=== PATIENT | female | born 1985 | race Caucasian/White ===

== ENCOUNTER 2017-02-19 17:35 | Emergency (ER) | payer BC, OTHER ==
[~2017-02-19] VITALS: Ht 165.1 cm; Wt 69.4 kg
[~2017-02-19 17:35] MED LIST: LEVO-713 PO; NXM/40 PO; SUCR5SUS PO; SUMA100T16 PO; SYMIN160 INH
[2017-02-19 17:38] VITALS: Ht 165.1 cm; Wt 69.4 kg
[2017-02-19] MEDS ORDERED: PROCHLORPERAZINE 5 MG/ML 2 ML VIAL IV STA (17:51)
[2017-02-19] MEDS ORDERED: DiphenhydrAMINE HCL 50 MG/ML VIAL IV STA (17:51)
[2017-02-19] MEDS ORDERED: SODIUM CHLORIDE 0.9% 1000ML 1,000 ML IV STA (17:51)
[2017-02-19] MEDS ORDERED: ERGO1CAP41 PO (18:26)
[2017-02-19] MEDS ORDERED: ASPI-390 PO (18:27)
[2017-02-19 18:38] LABS: BASO % 0.2 %; BASO ABS # 0.01 K/uL (0-0.2); COMPLETE YES; EOS % 0.2 %; HEMATOCRIT 37.7 % (37-47); IG% 0.2 %; LYMPH % 21.7 %; LYMPH ABS # 1.23 K/uL (1.2-3.4); MEAN CELL VOLUME 92.4 fL (80-100); MEAN CORPUSCULAR HEMOGLOBIN 30.9 pg (25-34); MEAN CORPUSCULAR HGB CONC 33.4 g/dl (32-36); MEAN PLATELET VOLUME 9.5 fL (7.4-10.4); NEUT % 71.7 %; PLATELET COUNT 251 K/uL (130-400); RED BLOOD COUNT 4.08 M/uL (4.2-5.4); WHITE BLOOD COUNT 5.68 K/uL (4.8-10.8)
[2017-02-19 18:57] LABS: BUN/CREATININE RATIO 14.9 (10-20); CALCIUM 8.9 mg/dl (8.5-10.1); CREATININE 0.93 mg/dl (0.60-1.20); POTASSIUM 3.5 mmol/L (3.5-5.1)
[2017-02-19] MEDS ORDERED: KETOROLAC TROMETHAMINE 30 MG/ML VIAL IV STA (18:57)
[2017-02-19 19:00] LABS: INR 1.1 (0.9-1.1); PARTIAL THROMBOPLASTIN RATIO 1.2; PROTHROMBIN TIME (PATIENT) 11.3 SECONDS (9.0-12.0)
--- NOTE | 2017-02-19 19:26 | DIAGNOSTIC IMAGING REPORT ---
CT OF THE ABDOMEN AND PELVIS WITHOUT CONTRAST, STONE PROTOCOL CLINICAL HISTORY: Left-sided abdominal pain. Evaluate for stone. COMPARISON STUDY: CT of the abdomen February 19, 2014 and right upper quadrant ultrasound November 08, 2014. TECHNIQUE: Helical axial images of the abdomen and pelvis were obtained without IV or oral contrast according to renal stone protocol. FINDINGS: Visualized portions of the lower chest demonstrate a pectus excavatum deformity. No renal, ureteral or bladder calculi are present. There is no hydronephrosis or hydroureter. The gallbladder is surgically absent. There is no biliary ductal dilatation. Evaluation of the remainder of the abdomen and pelvis is suboptimal on this unenhanced exam. The liver, spleen, adrenal glands and pancreas are normal. There is no evidence for a bowel obstruction. The appendix is not identified but there is no right lower quadrant inflammation. The ovaries are not enlarged. No pneumatosis, free air or portal venous gas is present. No suspicious skeletal lesions are identified. IMPRESSION: 1. No urinary calculi or hydronephrosis. 2. No acute process within the abdomen or pelvis on unenhanced exam. Electronically signed by: Adam Metz M.D. 02/19/2017 7:25 PM Dictated Date/Time: 02/19/2017 7:17 PM
[2017-02-19 19:39] LABS: LYME DISEASE AB IGG NEG (NEG); LYME DISEASE AB IGM NEG (NEG)
[2017-02-19] MEDS ORDERED: DOXY100C2 PO (20:01)
[2017-02-19 20:13] LABS: URINE APPEARANCE CLEAR (CLEAR); URINE BILIRUBIN NEG (NEG); URINE COLOR DK YELLOW; URINE EPITHELIAL CELL AUTO >30 /lpf (0-5); URINE NITRITE NEG (NEG); URINE SPECIFIC GRAVITY 1.033 (1.000-1.030); UROBILINOGEN NEG (NEG)
[2017-02-19] MEDS ORDERED: DOXYCYCLINE HYCLATE 100 MG CAP PO ONE (20:15)
[2017-02-19 20:20] LABS: MANUAL MICROSCOPIC REQUIRED? NO; REVIEW REQ? NO
[2017-02-19 20:45] VITALS: BP 104/68; PULSE 65; TEMP 36.9; O2SAT 97
--- NOTE | 2017-02-19 20:56 | EMERGENCY ROOM VISIT NOTE ---
History Report prepared by Elo: Joe Woodard Under the Supervision of: Dr. Collin Gavin M.D. First contact with patient: 17:43 Chief Complaint: HEADACHE Stated Complaint: MIGRAINE,DEHYDRATION,TICK BITE(NOVEMBER), ABDPAIN History of Present Illness The patient is a 31 year old female who presents to the Emergency Room with complaints of a worsening, left-sided, throbbing, headache beginning the other day. The patient states that she has been sick since November. She reports that she has had constant nausea, increased migraines, but she has not vomited. The patient notes that her headaches are always on the left side, and light makes them worse. She states that she is now vomiting, and she has had abdominal pain for the past two weeks. It is located in her upper abdomen toward the left side. It was worse last night. She also complains of Joint pain in her knees, fatigue, and a stiff, burning neck. The patient reports that she typically does not get neck pain with her headaches. The patient states that in November, she had 4 tick bites, two are gone, and two are still present and now itchy. She did remove the ticks in their entirety at the time. She denies melena, hematochezia, and bulls-eye rashes around her bites. The patient reports that she has a history of a cholecystectomy two years ago. She denies the use of alcohol and the chance of being . Source of History: patient Onset: the other day Position: head (left-sided) Quality: ache, other (throbbing) Timing: worsening Modifying Factors (Worsening): other (light) Associated Symptoms: + neck pain (stiff), + nausea, + vomiting, + abdominal pain, + fatigue, No melena, No hematochezia, No rash (bulls-eye) Note: Associated symptoms: frequent constipation, joint pain in her knees Review of Systems See HPI for pertinent positives & negatives. A total of 10 systems reviewed and were otherwise negative. Past Medical & Surgical Medical Problems: (1) Migraine Family History FHx: gallbladder disease Social History Smoking Status: Never Smoker Housing Status: lives with family Occupation Status: employed Current/Historical Medications Scheduled Doxycycline Hyclate (Vibramycin), 100 MG PO BID Ergocalciferol (Vitamin D 79599 Unit), 50,000 TAB PO WK Levonorgestrel & Eth Estradiol (Lutera), 1 TAB PO DAILY Sumatriptan Succinate (Imitrex), 100 MG PO PRN Scheduled PRN Fpslwtk-Blqhojoztuqdq-Creivpyj (Excedrin Migraine), 1 TAB PO Q6H PRN for Migraine Allergies Coded Allergies: Ondansetron (Unverified Allergy, Intermediate, HIVES, 04/20/14) ALSO STARTS VOMITING WITH THIS DRUG. Cephalexin (Unverified Allergy, Unknown, UNKNOWN, 04/20/14) Uncoded Allergies: PENCILLIN (Allergy, Unknown, UNKNOWN, 04/10/14) Physical Exam Vital Signs Date Time Temp Pulse Resp B/P (MAP) Pulse Ox O2 Delivery O2 Flow Rate FiO2 02/19/17 20:45 36.9 65 104/68 97 02/19/17 18:33 59 02/19/17 18:31 73 16 97 Room Air 02/19/17 17:38 36.7 61 18 139/88 98 Room Air Physical Exam Constitutional: Vital signs reviewed. Eyes: Pupils are equal round reactive to light. Conjunctiva are noninjected. ENT: Pharynx is clear without erythema or exudate. Mucous membranes are moist. Neck supple without meningeal signs. Respiratory: Clear to auscultation bilaterally. Breath sounds are equal bilaterally. Cardiovascular: Regular rate and rhythm. No rubs or gallops. GI: Soft, nondistended and mild epigastric tenderness. Bowel sounds are present. Musculoskeletal: No peripheral edema. No lower extremity tenderness. Integumentary: No cyanosis. Two healed insect bites to the right knee and calf. No insect parts noted. Neurological: The patient is awake and alert. Cranial nerves II-XII are intact. Motor is 5 out of 5 all extremities. Sensation is intact to light touch all extremities. Normal speech. No pronator drift. Psychiatric: Normal affect. Medical Decision & Procedures ER Provider Diagnostic Interpretation: CT results as stated below per my review and radiologist interpretation. CT OF THE ABDOMEN AND PELVIS WITHOUT CONTRAST, STONE PROTOCOL CLINICAL HISTORY: Left-sided abdominal pain. Evaluate for stone. COMPARISON STUDY: CT of the abdomen February 19, 2014 and right upper quadrant ultrasound November 08, 2014. TECHNIQUE: Helical axial images of the abdomen and pelvis were obtained without IV or oral contrast according to renal stone protocol. FINDINGS: Visualized portions of the lower chest demonstrate a pectus excavatum deformity. No renal, ureteral or bladder calculi are present. There is no hydronephrosis or hydroureter. The gallbladder is surgically absent. There is no biliary ductal dilatation. Evaluation of the remainder of the abdomen and pelvis is suboptimal on this unenhanced exam. The liver, spleen, adrenal glands and pancreas are normal. There is no evidence for a bowel obstruction. The appendix is not identified but there is no right lower quadrant inflammation. The ovaries are not enlarged. No pneumatosis, free air or portal venous gas is present. No suspicious skeletal lesions are identified. IMPRESSION: 1. No urinary calculi or hydronephrosis. 2. No acute process within the abdomen or pelvis on unenhanced exam. Electronically signed by: Adam Metz M.D. 02/19/2017 7:25 PM Dictated Date/Time: 02/19/2017 7:17 PM Laboratory Results 02/19/17 17:30 Red Blood Count 4.08, Mean Corpuscular Volume 92.4, Mean Corpuscular Hemoglobin 30.9, Mean Corpuscular Hemoglobin Concent 33.4, Mean Platelet Volume 9.5, Neutrophils (%) (Auto) 71.7, Lymphocytes (%) (Auto) 21.7, Monocytes (%) (Auto) 6.0, Eosinophils (%) (Auto) 0.2, Basophils (%) (Auto) 0.2, Neutrophils # (Auto) 4.08, Lymphocytes # (Auto) 1.23, Monocytes # (Auto) 0.34, Eosinophils # (Auto) 0.01, Basophils # (Auto) 0.01 02/19/17 17:30 Test 02/19/17 17:30 02/19/17 19:49 White Blood Count 5.68 K/uL (4.8-10.8) Red Blood Count 4.08 M/uL (4.2-5.4) Hemoglobin 12.6 g/dL (12.0-16.0) Hematocrit 37.7 % (37-47) Mean Corpuscular Volume 92.4 fL (80-100) Mean Corpuscular Hemoglobin 30.9 pg (25-34) Mean Corpuscular Hemoglobin Concent 33.4 g/dl (32-36) Platelet Count 251 K/uL (130-400) Mean Platelet Volume 9.5 fL (7.4-10.4) Neutrophils (%) (Auto) 71.7 % Lymphocytes (%) (Auto) 21.7 % Monocytes (%) (Auto) 6.0 % Eosinophils (%) (Auto) 0.2 % Basophils (%) (Auto) 0.2 % Neutrophils # (Auto) 4.08 K/uL (1.4-6.5) Lymphocytes # (Auto) 1.23 K/uL (1.2-3.4) Monocytes # (Auto) 0.34 K/uL (0.11-0.59) Eosinophils # (Auto) 0.01 K/uL (0-0.5) Basophils # (Auto) 0.01 K/uL (0-0.2) RDW Standard Deviation 40.8 fL (36.4-46.3) RDW Coefficient of Variation 11.9 % (11.5-14.5) Immature Granulocyte % (Auto) 0.2 % Immature Granulocyte # (Auto) 0.01 K/uL (0.00-0.02) Prothrombin Time 11.3 SECONDS (9.0-12.0) Prothromb Time International Ratio 1.1 (0.9-1.1) Activated Partial Thromboplast Time 30.1 SECONDS (21.0-31.0) Partial Thromboplastin Ratio 1.2 Anion Gap 5.0 mmol/L (3-11) Est Creatinine Clear Calc Drug Dose 86.5 ml/min Estimated GFR () 95.6 Estimated GFR (Non- 82.5 BUN/Creatinine Ratio 14.9 (10-20) Calcium Level 8.9 mg/dl (8.5-10.1) Total Bilirubin 0.7 mg/dl (0.2-1) Direct Bilirubin 0.1 mg/dl (0-0.2) Aspartate Amino Transf (AST/SGOT) 13 U/L (15-37) Alanine Aminotransferase (ALT/SGPT) 22 U/L (12-78) Alkaline Phosphatase 55 U/L (45-117) Total Protein 7.4 gm/dl (6.4-8.2) Albumin 4.0 gm/dl (3.4-5.0) Lipase 116 U/L (73-393) Lyme Disease IgG Antibody NEG (NEG) Lyme Disease IgM Antibody NEG (NEG) Urine Color DK YELLOW Urine Appearance CLEAR (CLEAR) Urine pH 6.0 (4.5-7.5) Urine Specific [place] 1.033 (1.000-1.030) Urine Protein TRACE (NEG) Urine Glucose (UA) NEG (NEG) Urine Ketones 1+ (NEG) Urine Occult Blood TRACE (NEG) Urine Nitrite NEG (NEG) Urine Bilirubin NEG (NEG) Urine Urobilinogen NEG (NEG) Urine Leukocyte Esterase NEG (NEG) Urine WBC (Auto) 5-10 /hpf (0-5) Urine RBC (Auto) 5-10 /hpf (0-4) Urine Hyaline Casts (Auto) 1-5 /lpf (0-5) Urine Epithelial Cells (Auto) >30 /lpf (0-5) Urine Bacteria (Auto) NEG (NEG) Urine Test NEG (NEG) Laboratory results as reviewed by me. Medications Administered Medications (Trade) Dose Ordered Sig/Robert Route Start Time Stop Time Status Last Admin Dose Admin Sodium Chloride 1,000 ml @ 999 mls/hr Q1H1M STAT IV 02/19/17 17:51 02/19/17 18:51 DC 02/19/17 18:23 999 MLS/HR Prochlorperazine Edisylate (Compazine Inj) 10 mg NOW STAT IV 02/19/17 17:51 02/19/17 17:53 DC 02/19/17 18:23 10 MG Diphenhydramine HCl (Benadryl Inj) 50 mg NOW STAT IV 02/19/17 17:51 02/19/17 17:53 DC 02/19/17 18:23 50 MG Ketorolac Tromethamine (Toradol Inj) 10 mg NOW STAT IV 02/19/17 18:57 02/19/17 18:58 DC 02/19/17 19:07 10 MG Doxycycline Hyclate (Vibramycin Cap) 100 mg ONE ONCE PO 02/19/17 20:15 02/19/17 20:16 DC 02/19/17 20:42 100 MG ECG Indication: abdominal pain Rate (beats per minute): 52 Rhythm: sinus bradycardia Findings: no acute ischemic change, no ectopy ED Course 1744: The patient was evaluated in room C04. A complete history and physical exam was performed. 175: Ordered Benadryl Inj 50 mg IV, Compazine Inj 10 mg IV, Sodium Chloride 1000 ml @ 999 mls/hr IV 1851: I reevaluated the patient, and she still has a headache. She states that she does not need a test prior to her CT scan. 1856: Ordered Toradol Inj 10 mg IV 1939: I reevaluated the patient, and her headache is better. I discussed her test results with her, and she is going to try and give up a urine sample. 1999: I reevaluated the patient, and she wants to go home. She states that if she lies down at home, she will feel better. I discussed treating her for Lyme Disease or sending a Western blot. She states that she would prefer to be treated for Lyme Disease. 2014: Ordered Doxycycline Hyclate 100 mg PO Medical Decision This is a 31-year-old female presents with headache, vomiting, joint pain, abdominal pain. Differential diagnosis includes migraine headache, tension headache, meningitis, Lyme disease, kidney stone, UTI, peptic ulcer disease, pancreatitis. I did perform a limited focused review of portions of the patient 's old chart on the electronic medical record. The patient has had an MRI of the brain in 2014 which was unremarkable. Medication Reconciliation: I attest that I have personally reviewed the patient' s current medication list. Blood Pressure Screening: Patient was found to have an elevated blood pressure and was referred to their primary doctor for recheck and further treatment. I did evaluate the patient as noted above. IV access was established. I did treat patient with IV Compazine, Benadryl and normal saline. She had no relief of her headache and so she was given Toradol IV. I did order and personally review the patient's urinalysis as described above. I did order and review the patient's blood work as noted in the electronic medical record. Her white blood cell count was not elevated. Lyme testing was negative. I did order a CT of the abdomen and pelvis. I did review the images myself as well as the radiology report as described above. There is no evidence of acute process. I did reassess the patient. She is feeling better. Her headache is improved. The etiology of her abdominal pain is unclear at this time. She was advised to try cccm-ffg-yalzxxy Prilosec or Pepcid and follow closely with her doctor for further evaluation. She does state that a history of peptic ulcer disease does run in the family. Regarding her other symptoms, she has some concern for Lyme disease. While she does have a negative Lyme test these often have false negatives. She is complaining of joint pain, fatigue and headache. She does state her headache feels like her prior migraines. We did discuss either obtaining a Western blot test for treating her empirically. She chose treatment with antibiotics. She was given doxycycline here and discharged with a 21 and a prescription for doxycycline. She will follow up with her doctor. Impression Primary Impression: Abdominal pain, left upper quadrant Additional Impressions: Headache Tick bite Arthralgia Scribe Attestation The scribe's documentation has been prepared under my direct and personally reviewed by me in its entirety. I confirm that the note above accurately reflects all work, treatment, procedures, and medical decision making performed by me. Departure Information Dispostion Home / Self-Care Prescriptions Doxycycline Hyclate (VIBRAMYCIN) 100 Mg Cap 100 MG PO BID for 21 Days, #42 CAP Prov: Collin Gavin M.D. 02/19/17 Referrals Harvey Jackson D.O. (PCP) Forms HOME CARE DOCUMENTATION FORM, IMPORTANT VISIT INFORMATION Patient Instructions ED Abdominal Pain Unkn Cause, ED Headache Migraine, My [facility] Additional Instructions You have been examined and treated today on an emergency basis only. This is not a substitute for, or an effort to provide, complete comprehensive medical care. It is impossible to recognize and treat all injuries or illnesses in a single emergency department visit. It is therefore important that you follow up closely with your physician. Call as soon as possible for an appointment. Return for worsening symptoms or if you develop fever, numbness or weakness on one side of your body, difficulties with your speech or walking, or any other concerning symptoms. Doxycycline will affect the efficacy of your control pills. Use other methods of control while on this medication. Problem Qualifiers Additional Impressions: Headache Headache type: unspecified Headache chronicity pattern: episodic headache Intractability: not intractable Qualified Codes: R51 - Headache Tick bite Encounter type: initial encounter Qualified Codes: W57.XXXA - Bitten or stung by nonvenomous insect and other nonvenomous arthropods, initial encounter Arthralgia Joint pain location: unspecified Qualified Codes: M25.50 - Pain in unspecified joint
== END 2017-02-19 20:46 | disposition home or self-care (01) ==
LOC: C.EDB 17:37 → C.EDC 20:46
DX: R10.12 Left upper quadrant pain (principal); R51 Headache; W57.XXXA Bitten or stung by nonvenomous insect and other nonvenomous arthropods, initial encounter; M25.50 Pain in unspecified joint; R11.2 Nausea with vomiting, unspecified; Z90.49 Acquired absence of other specified parts of digestive tract

== ENCOUNTER → 2017-02-26 | Outpatient (CLI) | payer BC, OTHER ==
[~2017-02-26] MED LIST changes: +ASPI-390 PO; +DOXY100C2 PO; +ERGO1CAP41 PO; -NXM/40 PO; +OPTIRAY 320 IV PRN; -SUCR5SUS PO; -SYMIN160 INH
--- NOTE | 2017-02-26 16:06 | DIAGNOSTIC IMAGING REPORT ---
CT OF THE HEAD WITH AND WITHOUT CONTRAST CLINICAL HISTORY: Left retrobulbar pain. Headache, nausea and vomiting. COMPARISON STUDY: MRI of the brain January 26, 2015. TECHNIQUE: Axial images of the head were obtained before and after intravenous administration of 110 cc of Optiray 320 IV. FINDINGS: No acute intracranial hemorrhage, midline shift or mass effect is present. Brain volume is normal. Ventricular system is normal. Basilar cisterns are patent. There are no extra-axial collections. Evans-white differentiation is maintained. There are no findings to suggest acute dural sinus thrombosis or acute territorial infarct. No intracranial mass or pathologic enhancement is present. Visualized portions of the sinuses and mastoid air cells are clear. There are no calvarial abnormalities. Orbits appear unremarkable. IMPRESSION: Normal unenhanced and contrast-enhanced head CT. Electronically signed by: Adam Metz M.D. 02/26/2017 4:04 PM Dictated Date/Time: 02/26/2017 3:59 PM
== END | disposition home or self-care (01) ==
LOC: C.CTS 15:15
PROVIDERS: ATTEND Family Medicine
DX: G43.011 Migraine without aura, intractable, with status migrainosus (principal); R11.2 Nausea with vomiting, unspecified

== ENCOUNTER 2017-08-28 08:15 | Emergency (ER) | payer BC, OTHER ==
[~2017-08-28] VITALS: Ht 167.6 cm; Wt 71.9 kg
[~2017-08-28 08:15] MED LIST changes: -ERGO1CAP41 PO; +ERGO500011 PO; +LEVO-645 PO; -LEVO-713 PO; -OPTIRAY 320 IV PRN
[2017-08-28 08:18] VITALS: Ht 167.6 cm; Wt 71.9 kg
[2017-08-28] MEDS ORDERED: DOXYCYCLINE HYCLATE 100 MG CAP PO STA (08:27)
--- NOTE | 2017-08-28 08:57 | DIAGNOSTIC IMAGING REPORT ---
RIGHT HAND 3 VIEWS CLINICAL HISTORY: Dog bite injury. FINDINGS: 3 views of the right hand are obtained. No prior studies are available for comparison at the time of dictation. The skeletal structures are well mineralized. No fracture is identified. The joint spaces of the hand are preserved. The overlying soft tissues are normal as imaged. IMPRESSION: No acute bony abnormality is seen in the right hand. Electronically signed by: Hosea Johnson M.D. 08/28/2017 8:55 AM Dictated Date/Time: 08/28/2017 8:54 AM
[2017-08-28] MEDS ORDERED: GABA-112 PO (08:59)
[2017-08-28] MEDS ORDERED: LEVOTAB2 PO (08:59)
[2017-08-28] MEDS ORDERED: SUMA25TA12 PO (08:59)
[2017-08-28] MEDS ORDERED: CHOL1000 PO (08:59)
[2017-08-28] MEDS ORDERED: DOXY100C PO (10:05)
[2017-08-28 10:41] VITALS: BP 117/79; PULSE 65; TEMP 37.2; O2SAT 97
--- NOTE | 2017-08-28 16:27 | EMERGENCY ROOM VISIT NOTE ---
History First contact with patient: 08:21 Chief Complaint: BITE Stated Complaint: DOG BITE History of Present Illness The patient is a 31 year old female who presents to the Emergency Room with complaints of a dog bite to her right hand. The patient reports that she accidentally hit a dog that ran across the road. When she stopped check on the condition of the dog, the dog bit her hand twice. The patient reports that she did speak with the owner oral surgeon who reports that the dog was owned by his father who recently . The patient was told that the dog is up-to-date on its immunizations, and had a registration and rabies tag on its collar. The patient did not look any closer at the tags, but felt comfortable that the dog indeed was up-to-date on its rabies immunizations. The patient currently reports notable discomfort and difficulty moving her thumb. She also has noticed some swelling at the base of the thumb. She denies any john numbness of the thumb tip or other fingers. The patient is ulpyc-ncrj-peywenjp, and rates her pain a 5 out of 10. Tetanus immunization is up-to-date. Review of Systems 10 system review was performed and was negative except for pertinent positives and negatives as indicated in history of present illness Past Medical/Surgical History Medical Problems: (1) Migraine Family History FHx: gallbladder disease Social History Smoking Status: Never Smoker Alcohol Use: occasionally Marital Status: Housing Status: lives with family Occupation Status: employed Current/Historical Medications Scheduled Cholecalciferol (Vitamin D3), 1 TAB PO DAILY Doxycycline Hyclate (Vibramycin), 100 MG PO BID Levonorgestrel & Eth Estradiol (Aviane), 1 TAB PO DAILY Sumatriptan Succinate (Imitrex), 25 MG PO PRN Miscellaneous Medications Gabapentin (Neurontin), 100 MG PO Physical Exam Vital Signs Date Time Temp Pulse Resp B/P (MAP) Pulse Ox O2 Delivery O2 Flow Rate FiO2 08/28/17 10:41 37.2 65 18 117/79 97 08/28/17 10:40 65 18 117/79 97 Room Air 08/28/17 08:39 37.2 65 18 119/79 97 Room Air 08/28/17 08:18 37.2 65 18 119/79 97 Room Air Physical Exam CONSTITUTIONAL: Healthy and well nourished. Alert and oriented X 3 with positive affect. Patient appears in mild discomfort from pain. HEENT: Normocephalic, atraumatic. Pupils equal, round and reactive. NECK: Full active range of motion without discomfort. MUSCULOSKELETAL: Examination of the left hand shows a puncture wound over the dorsal fourth metacarpal region, and over the distal thenar eminence. The patient has discomfort with any attempted flexion or extension of the thumb. Capillary refill of the thumb is less than 2 seconds. INTEGUMENTARY: No rash or other significant dermatologic conditions noted. NEUROLOGIC: No focal neurologic deficits noted. Right thumb is grossly sensory intact. Medical Decision & Procedures ER Provider Diagnostic Interpretation: My interpretation of right hand x-rays does not show any obvious fractures, dislocation or radiopaque foreign bodies. Radiologist report is as follows: RIGHT HAND 3 VIEWS CLINICAL HISTORY: Dog bite injury. FINDINGS: 3 views of the right hand are obtained. No prior studies are available for comparison at the time of dictation. The skeletal structures are well mineralized. No fracture is identified. The joint spaces of the hand are preserved. The overlying soft tissues are normal as imaged. IMPRESSION: No acute bony abnormality is seen in the right hand. Medications Administered Medications (Trade) Dose Ordered Sig/Robert Route Start Time Stop Time Status Last Admin Dose Admin Doxycycline Hyclate (Vibramycin Cap) 100 mg NOW STAT PO 08/28/17 08:27 08/28/17 08:31 DC 08/28/17 09:46 100 MG ED Course Patient history and physical exam were performed. Nurse's notes were reviewed. Vital signs were reviewed and normal. The patient refused any analgesics. He reports allergies to both Keflex and insulin. She was administered doxycycline 100 mg orally. X-rays of the right hand. Bacitracin dressings were applied to the hand, along with a Velcro thumb spica splint. The patient was instructed to follow-up with Dr. Alanis, and surgeon for further reevaluation. She was provided a prescription for doxycycline. She was encouraged to intermittently apply ice to the hand, and elevated as needed for swelling and pain. Ibuprofen and Tylenol in alternating fashion as needed for additional pain relief. The patient was instructed to return to the emergency department for any significantly worsening swelling, pain or signs of infection. The patient refused any prescription analgesics, was happy with plan of care, and rated her overall discomfort a 4 out of 10 at the conclusion of my exam. Medical Decision Medication Reconcilliation Current Medication List: was personally reviewed by me Blood Pressure Screening Patient's blood pressure: Normal blood pressure Impression Primary Impression: Dog bite of right hand Departure Information Prescriptions Doxycycline Hyclate (VIBRAMYCIN) 100 Mg Cap 100 MG PO BID for 10 Days, #20 CAP Prov: Jan Peñaloza PA 08/28/17 Referrals Harvey Jackson D.O. (PCP) Patient Instructions My [facility] Problem Qualifiers Primary Impression: Dog bite of right hand Encounter type: initial encounter Qualified Codes: S61.451A - Open bite of right hand, initial encounter; W54.0XXA - Bitten by dog, initial encounter
== END 2017-08-28 10:41 | disposition home or self-care (01) ==
LOC: C.EDB 08:16
DX: S61.451A Open bite of right hand, initial encounter (principal); Z79.3 Long term (current) use of hormonal contraceptives; Z79.899 Other long term (current) drug therapy; W54.0XXA Bitten by dog, initial encounter; Z87.19 Personal history of other diseases of the digestive system

== ENCOUNTER → 2018-03-13 | Day surgery (SDC) | payer BC, OTHER ==
[2018-03-07 16:20] VITALS: Ht 167.6 cm; Wt 67.3 kg
[~2018-03-13] VITALS: Ht 167.6 cm; Wt 67.3 kg
[~2018-03-13] MED LIST changes: -ASPI-390 PO; +CHOL4POW12 PO; +DIPH-416 PO; -DOXY100C2 PO; -ERGO500011 PO; +GLYCOPYRROLATE INJ 0.2 MG/ML VIAL ONE; -LEVO-645 PO; +LEVOTAB2 PO; +LIDOCAINE HCL 2% 2 ML VIAL (20MG/ML) ONE; +MIDAZOLAM HCL 1 MG/ML 2ML VIAL ONE; +MULT1CHW37 PO; +NRN100 PO; +PROM12.529 PO; +PROPOFOL IV EMULSION 10 MG/ML 20 ML VIAL ONE; +SODIUM CHLORIDE 0.9% 500ML 500 ML IV ONE; -SUMA100T16 PO; +SUMA25TA12 PO; +VNTHFA/IN INH
[2018-03-13 14:14] VITALS: TEMP 36.8
--- NOTE | 2018-03-13 14:32 | Endo History and Physical ---
History & Physical Date of Service: Mar 13, 2018. Chief Complaint: epigastric pain Referring Physician: Dr. Jackson History of Present Illness 32 yo CF who presents for EGD secondary to epigastric pain. Past Medical History Asthma Past Surgical History Hx Cardiac Surgery: No Hx Internal Defibrillator: No Hx Pacemaker: No Hx Abdominal Surgery: Yes (LAP GB SURG) Hx of Implantable Prosthesis: No Hx Post-Op Nausea and Vomiting: No Hx Cancer Surgery: No Hx Thoracic Surgery: No Hx Orthopedic: No Hx Urinary Tract Surgery: No Family History Polyp, IBD Social History Smoking Status: Never Smoker Hx Substance Use: No Hx Alcohol Use: No Allergies Coded Allergies: Cephalexin (Verified Allergy, Intermediate, HIVES, 03/13/18) Ondansetron (Verified Allergy, Intermediate, HIVES, 03/13/18) ALSO STARTS VOMITING WITH THIS DRUG. Latex1 -Allergic Contact Dermititis (Verified Allergy, Mild, RASH, 03/13/18) Peanut (Verified Allergy, Unknown, ANAPHYLAXIS, 03/13/18) Penicillins (Verified Allergy, Unknown, Childhood allergy, 03/13/18) Current Medications Reported Home Medications Medications Dose Route/Sig Max Daily Dose Days Date Category Dose Instructions Lomotil (Diphenoxylate HCl/Atropine) Tab 1 Tab PO PRN 03/07/18 Reported UP TO 8 X A DAY PRN Ventolin Hfa (Albuterol) 200 Puffs/46001 Mcg Aers 2-4 Puffs INH Q6H PRN 02/01/18 Reported Multi Adult Gummies (Multiple Vitamins W/ Minerals) 1 Chw Chw 2 Tab PO QPM 02/01/18 Reported Phenergan (Promethazine Hcl) 12.5 Mg Tab 12.5 Mg PO Q6H PRN 02/01/18 Reported Questran (Cholestyramine) 4 Gm/Dose Pow 1 Dose PO QPM PRN 02/01/18 Reported Gabapentin 100 Mg Cap 200 Mg PO QPM 01/22/18 Reported Imitrex (Sumatriptan Succinate) 25 Mg Tab 25 Mg PO PRN 08/28/17 Reported Aviane (Levonorgestrel & Eth Estradiol) 1 Tab Tab 1 Tab PO HS 28 08/28/17 Reported Vital Signs Weight (Kilograms): 67.27 Height (Feet): 5 Height (Inches): 6 Date Time Temp Pulse Resp B/P (MAP) Pulse Ox O2 Delivery O2 Flow Rate FiO2 03/13/18 14:14 36.8 50 18 121/72 (88) 97 Room Air Physical Exam General Appearance: WD/WN, no apparent distress Respiratory/Chest: Auscultation: breath sounds normal Cardiovascular: Heart Auscultation: RRR Abdomen: Bowel Sounds: normal Inspection & Palpation: soft, non-distended, no tenderness, guarding & rebound Assessment and Plan Assessment: 32 yo CF who presents for EGD secondary to epigastric pain. Plan: Proceed with EGD.
--- NOTE | 2018-03-13 15:10 | Discharge Instructions ---
Endoscopy Patient Instructions Date / Procedure(s) Performed Mar 13, 2018. EGD Allergy Information Coded Allergies: Cephalexin (Verified Allergy, Intermediate, HIVES, 03/13/18) Ondansetron (Verified Allergy, Intermediate, HIVES, 03/13/18) ALSO STARTS VOMITING WITH THIS DRUG. Latex1 -Allergic Contact Dermititis (Verified Allergy, Mild, RASH, 03/13/18) Peanut (Verified Allergy, Unknown, ANAPHYLAXIS, 03/13/18) Penicillins (Verified Allergy, Unknown, Childhood allergy, 03/13/18) Discharge Date / Findings Mar 13, 2018. Normal EGD Medication Instructions OK to resume all medications today as prescribed Reported Home Medications Medications Dose Route/Sig Max Daily Dose Days Date Category Dose Instructions Lomotil (Diphenoxylate HCl/Atropine) Tab 1 Tab PO PRN 03/07/18 Reported UP TO 8 X A DAY PRN Ventolin Hfa (Albuterol) 200 Puffs/71035 Mcg Aers 2-4 Puffs INH Q6H PRN 02/01/18 Reported Multi Adult Gummies (Multiple Vitamins W/ Minerals) 1 Chw Chw 2 Tab PO QPM 02/01/18 Reported Phenergan (Promethazine Hcl) 12.5 Mg Tab 12.5 Mg PO Q6H PRN 02/01/18 Reported Questran (Cholestyramine) 4 Gm/Dose Pow 1 Dose PO QPM PRN 02/01/18 Reported Gabapentin 100 Mg Cap 200 Mg PO QPM 01/22/18 Reported Imitrex (Sumatriptan Succinate) 25 Mg Tab 25 Mg PO PRN 08/28/17 Reported Aviane (Levonorgestrel & Eth Estradiol) 1 Tab Tab 1 Tab PO HS 28 08/28/17 Reported Provider Instructions Activity Restrictions - No exercising or heavy lifting for 24 hours. - Do not drink alcohol the day of the procedure. - Do not drive a car or operate machinery until the day after the procedure. - Do not make any important decisions or sign important papers in 24 hours after the procedure. Following Day: - Return to full activity which may include returning to work/school. Diet Start your diet with liquids and light foods (jello, soup, juice, toast). Then eat your usual diet if not nauseated. Treatment For Common After Affects For mild abdominal pain, bloating, or excessive gas: - Rest - Eat lightly - Lie on right side Follow-Up Information Follow-up with Dr. Jackson as scheduled Anesthesia Information What You Should Know You have had a procedure that required some medicine to reduce anxiety and discomfort. This treatment is called moderate sedation. After receiving the treatment, you may be sleepy, but you will be able to breathe on your own. The effects of the treatment may last for several hours. Follow these instructions along with Activity/Diet recommendations noted above: * Do NOT do anything where dizziness or clumsiness would be dangerous. * Rest quietly at home today, then you can be up and about tomorrow. * Have a responsible person stay with you the rest of today. * You may have had an I.V. today. If so, you may take the dressing off later today. Recommendations Call your doctor if: * Trouble breathing * Continuous vomiting for more than 24 hours * Temperature above 101 degrees * Severe abdominal pain or bloating * Pain not relieved by pain medicine ordered * There is increased drainage or redness from any incision * A large amount of rectal bleeding greater than 2-3 tablespoons. (If you had a polyp/s removed or have hemorrhoids, a small amount of blood - from the rectum is to be expected.) * You have any unanswered questions or concerns. IN THE EVENT OF A SERIOUS EMERGENCY, GO TO THE NEAREST EMERGENCY ROOM Your discharge instructions were prepared by provider Valeriano Sanders. Patient Instructions Signature Page Lenore Santana Patient (or Guardian) Signature/Date: I have read and understand the instructions given to me by my caregivers. Caregiver/RN/Doctor Signature/Date: The above-named patient and/or guardian has received patient instructions on this date. + Original Patient Signature Page (only) stays with chart. Please make copy for patient.
--- NOTE | 2018-03-13 15:12 | GI REPORT ---
Patient Name: Lenore Santana Procedure Date: 03/13/2018 2:43 PM Date of : 1985 Admit Type: Outpatient Age: 32 Gender: Female Attending MD: Valeriano Sanders DO Procedure: Upper GI endoscopy Providers: Valeriano Sanders DO Referring MD: Harvey Jackson Indications: Epigastric abdominal pain Medicines: Monitored Anesthesia Care Complications: No immediate complications. Estimated Blood Loss: Estimated blood loss: none. Procedure: Pre-Anesthesia Assessment: - Prior to the procedure, a History and Physical was performed, and patient medications and allergies were reviewed. The patient's tolerance of previous anesthesia was also reviewed. The risks and benefits of the procedure and the sedation options and risks were discussed with the patient. All questions were answered, and informed consent was obtained. Prior Anticoagulants: The patient has taken no previous anticoagulant or antiplatelet agents. ASA Grade Assessment: II - A patient with mild systemic disease. After reviewing the risks and benefits, the patient was deemed in satisfactory condition to undergo the procedure. After obtaining informed consent, the endoscope was passed under direct vision. Throughout the procedure, the patient's blood pressure, pulse, and oxygen saturations were monitored continuously. The scope was introduced through the mouth, and advanced to the second part of duodenum. The upper GI endoscopy was accomplished without difficulty. The patient tolerated the procedure well. Findings: The esophagus was normal. A small hiatal hernia was present. The examined duodenum was normal. Impression: - Normal esophagus. - Small hiatal hernia. - Normal examined duodenum. - No specimens collected. Recommendation: - Resume previous diet. - Continue present medications. - Return to GI office as previously scheduled. Valeriano Sanders DO 03/13/2018 3:12:19 PM This report has been signed electronically. Note Initiated On: 03/13/2018 2:43 PM Number of Addenda: 0 I attest to the content of the Intraoperative Record and orders documented therein, exceptions below {[id number]}
--- NOTE | 2018-03-13 15:17 | Anesthesiology Progress Note ---
Anesthesia Post Op Note Date & Time Mar 13, 2018 at 15:17 Vital Signs Pain Intensity: 0 Vital Signs Past 12 Hours Date Time Temp Pulse Resp B/P (MAP) Pulse Ox O2 Delivery O2 Flow Rate FiO2 03/13/18 14:14 36.8 50 18 121/72 (88) 97 Room Air Notes Mental Status: alert / awake / arousable, participated in evaluation Pt Amnestic to Procedure: Yes Nausea / Vomiting: adequately controlled Pain: adequately controlled Airway Patency, RR, SpO2: stable & adequate BP & HR: stable & adequate Hydration State: stable & adequate Anesthetic Complications: no major complications apparent
[2018-03-13 15:58] VITALS: BP 119/80; PULSE 65; O2SAT 100
== END | disposition home or self-care (01) ==
LOC: C.GI 13:50
PROVIDERS: ATTEND Internal Medicine
DX: R10.13 Epigastric pain (principal); J45.990 Exercise induced bronchospasm; R00.1 Bradycardia, unspecified; K44.9 Diaphragmatic hernia without obstruction or gangrene; Z83.71 Family history of colonic polyps; Z83.79 Family history of other diseases of the digestive system; Z88.1 Allergy status to other antibiotic agents; Z88.0 Allergy status to penicillin; Z91.040 Latex allergy status; Z88.8 Allergy status to other drugs, medicaments and biological substances

== ENCOUNTER 2022-11-06 13:16 | Observation (INO) ==
--- NOTE | 2022-11-06 13:51 | ED Triage Note ---
Date of Service November 06, 2022 History of Present Illness This patient was briefly evaluated while in triage. An abbreviated physical exam was performed. This patient is a 37-year-old Female who presents to the ED for evaluation of being sent to the ED related to having oral surgery 4 days ago. She was referred for potential evaluation by Dr. Moore. She is having difficulty controlling her pain, and is having a tough time fully opening her mouth. Her oral surgeon sent her in today. 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 Had a total of 5 teeth removed in L top and bottom. Physical Exam CONSTITUTIONAL: in a mild amount of pain SKIN: pink, warm, dry, no rash MOUTH: swelling and gingival erythema in L upper and lower dentition. Unable to completely open mouth. Tenderness in L jaw region. No swelling under the tongue Initial orders for labs and / or imaging were placed and patient was placed in the waiting area until a bed is available. Please see further documentation for the full ED course.
[2022-11-06 15:20] LABS: Basophils # (auto) 0.03 K/uL (0-0.2); Basophils % (auto) 0.5 %; Eosinophils # (auto) 0.13 K/uL (0-0.50); Hematocrit (blood only) 37.4 % (37.0-47.0); Hemoglobin 12.7 g/dl (12.0-16.0); Immature Granulocytes # (auto) 0.03 K/uL (0.01-0.20); Immature Granulocytes % (auto) 0.5 %; Lymphocytes # (auto) 0.78 K/uL (1.2-3.4); Lymphocytes % (auto) 11.8 %; Mean Corpuscular Hemoglobin 31.8 pg (25.0-34.0); Mean Corpuscular Volume 93.7 fL (80.0-100.0); Mean Platelet Volume 9.9 fL (9.4-12.4); Monocytes # (auto) 0.38 K/uL (0.11-0.59); Monocytes % (auto) 5.7 %; Neutrophils # (auto) 5.27 K/uL (1.40-6.50); Neutrophils % (auto) 79.5 %; Platelet Count 305 K/uL (130-400); RDW Coefficient of Variation 11.4 % (11.5-14.5); RDW Standard Deviation 38.9 fL (36.4-46.3); Red Blood Count 3.99 M/uL (4.20-5.40); White Blood Count 6.62 K/ul (4.8-10.8)
--- NOTE | 2022-11-06 16:04 | Emergency Department Note ---
History of Present Illness General Chief complaint: Dental/Oral Stated complaint: COME OVER TO SEE DR LOCKE REACTIONS ON BODY Time Seen by Provider: 11/06/22 15:16 History of Present Illness Maximum Pain Intensity: 8 This is a 37-year-old female that presents to the emergency department via private vehicle referred by dentist with complaints of "left-sided facial pain, rash". The patient notes this past she had oral surgery in [place], [place]. She notes that she had 3 molar teeth removed on the left upper dentition and 2 on the left lower molar region. She notes pain since the extraction and worsening pain. She could not sleep over the past 2 nights. She is taking Percocet but notes very minimal relief despite this medication. No fevers or chills. Last dose of azithromycin scheduled today of which was prescribed to her in the postoperative setting. She also notes that she has a rash that developed the day of her surgery but before her surgery. She describes it as a small red type rash on the abdomen, chest and upper extremities. She notes that at nighttime it seems to worsen and becomes pruritic. She denies any trouble breathing. Home Medications Medication Instructions Recorded Confirmed Type promethazine 12.5 mg tablet 12.5 mg PO TID PRN nausea #20 tabs 06/14/21 10/11/22 Rx aspirin 81 mg tablet,delayed 81 - 162 mg PO QAM 02/16/22 10/11/22 History release albuterol sulfate 90 mcg/actuation 2 puffs inhalation UD PRN 08/14/22 10/11/22 History aerosol inhaler shortness of breath or wheezing hydroxychloroquine 400 mg tablet 200 mg PO BID 08/14/22 10/11/22 History sumatriptan succinate 100 mg tablet 100 mg PO UD 08/14/22 10/11/22 History albuterol [Ventolin] inhalation 08/18/22 10/11/22 History fluticasone propionate 50 1 spray intranasal DAILY 30 days 08/18/22 10/11/22 Rx mcg/actuation nasal #16 grams spray,suspension (Flonase Allergy Relief) Allergies Allergy/AdvReac Type Severity Reaction Status Date / Time cephalexin Allergy Unknown HIVES Verified 10/11/22 15:07 doxycycline Allergy Unknown rash & Verified 10/11/22 15:07 vomiting latex Allergy Unknown RASH Verified 10/11/22 15:07 ondansetron Allergy Unknown HIVES Verified 10/11/22 15:07 peanut Allergy Unknown ANAPHYLAXIS Verified 10/11/22 15:07 Penicillins Allergy Unknown Childhood Verified 10/11/22 15:07 allergy/unknown rxn Past Med/Surg History Medical History Aneurysm RIGHT CERVICAL ICA - FOLLOW [facility] NEURO - NEXT JENAE SEP 2022 - NEUROSURGERY & REPEAT MRA'S SCHEDULED FOR DECEMBER 2022 REASON FOR CURRENT BABY ASPIRIN Arthralgia Asthma well controlled rare res inh use Bruises easily Cold intolerance Connective tissue disorder getting testing > plans to see [facility] in near future - not eval by [facility] / evperla with [place] [facility] ...dx with RA Constipation Dysphagia Dysphonia Hiatal hernia History of anesthesia reaction heart rate normally runs in 40's, during a procedure once, dropped into 20's History of stomach ulcers Irritable bowel syndrome with diarrhea Migraines Rheumatoid arthritis Sacroiliitis Seizure age 7 > work up completed and negative > no issues since Slow to wake up after anesthesia TMJ (temporomandibular joint disorder) HX LOCKING Trouble swallowing WITH CHOCKING SENSATION/HAS ENT SCOPE SCHEDULED FOR AUG 18 2022 PRE PROCEDURE COVID TEST FOR ENT SCOPE ON AUG 16 2022 - PCP / DR RODRIGUEZ OFFICE Vitamin D deficiency hx Surgical History History of cardiac cath Jul 2020> due to failed stress test > was having chest pain> no further issues History of colonoscopy History of D&C History of esophagogastroduodenoscopy (EGD) History of nasal septoplasty x2 History of oral surgery History of rhinoplasty History of surgery on right wrist History of tooth extraction Hx of cholecystectomy Family History Grandmother Myocardial infarction Breast cancer Stroke Diabetes Grandfather Myocardial infarction Diabetes Mother Diabetes Father Diabetes Social History Smoking Status: Never smoker Second Hand Exposure: No; Hx Alcohol Use: No Hx Substance Use: No Preferred Language: Latvian Communication Ability: Effective [employer] Research Analyst Required: No Beliefs That Will Affect Care: None marital status: Current Living Situation: Spouse current occupational status: employed Feels Safe at Home: Yes Dental Care, Regularly: Yes Physical Activity Frequency: 5-6 Times per Week Assistive Devices: None Review of Systems A total of 10 systems reviewed and were otherwise negative Physical Exam Vital Signs Vital Signs - 24 hr 11/06/22 13:42 11/06/22 16:30 11/06/22 17:16 Temperature 36.8 C Temperature Source Temporal Artery Scan Pulse Rate 78 Pulse Rate [Finger] 69 69 Pulse Rhythm [Finger] Regular Regular Respiratory Rate 18 16 16 Respiratory Effort / Characteristics Non-Labored Spontaneous Non-Labored Respiratory Depth Normal Normal Blood Pressure 128/86 Blood Pressure [Left Arm] 122/70 110/75 Blood Pressure Mean 100 Blood Pressure Mean [Left Arm] 87 86 Pulse Oximetry 98 99 96 Oxygen Delivery Method Room Air Room Air Room Air Sepsis Recent Fever Within 48 Hours No Sepsis New/Unexplained Change in Mental Status No Sepsis Action Taken by Nursing No Action Required 11/06/22 18:46 11/06/22 20:21 Temperature Temperature Source Pulse Rate Pulse Rate [Finger] 95 H 63 Pulse Rhythm [Finger] Regular Respiratory Rate 16 18 Respiratory Effort / Characteristics Non-Labored Respiratory Depth Normal Blood Pressure Blood Pressure [Left Arm] 99/50 L 114/68 Blood Pressure Mean Blood Pressure Mean [Left Arm] 66 83 Pulse Oximetry 95 95 Oxygen Delivery Method Room Air Sepsis Recent Fever Within 48 Hours Sepsis New/Unexplained Change in Mental Status Sepsis Action Taken by Nursing VITAL SIGNS - Vital signs and nursing notes were reviewed. Stable and afebrile. GENERAL -37-year-old female appearing her stated age who is in no acute dist ress. Communicates well with provider and answers questions appropriately. SKIN -small punctate erythematous nonraised skin eruption present overlying the abdomen and a few areas present on the upper extremities and back region. No signs of infection. No skin sloughing. Negative Nikolsky sign. No bullae. HEAD - NC/AT. EYES - PERRL with EOMI bilaterally. Sclera anicteric. EARS - No deformities of external structures noted on gross examination bilaterally. External auditory canals without discharge or otorrhea. Tympanic membranes pearly guy without retraction or bulging. No fluid or purulent material visualized behind the TM. Handle of malleus, umbo, cone of light, pars tensa/flaccid all easily visualized. NOSE - Midline and without cyanosis. No epistaxis or purulent drainage noted. MOUTH/OROPHARYNX - Without perioral cyanosis. Buccal mucosa pink and moist and without leukoplakia. Tongue midline with equal elevation of palate bilaterally. No tonsillar hypertrophy, erythema, or exudates noted. There is evidence of recent molar extraction to the left superior and inferior dentition. There are 3 surgical extraction beds of the left superior molar dentition and 2 on the left inferior molar region. The beds have a yellowish/grayish appearance. There is no bleeding. No purulence. The surrounding tissue is mildly erythematous. NECK - Neck with FROM. Supple to palpation. Left anterior cervical lymphadenopathy noted. No nuchal rigidity. LUNGS - Chest wall symmetric without accessory muscle use, intercostals retractions, or central cyanosis. Normal vesicular breath sounds CTA B/L. No wheezes, rales, or rhonchi appreciated. CARDIAC - RRR with S1/S2. No murmur, rubs, or gallops appreciated. EXTREMITIES - +5/5 strength noted in UE/LE bilaterally. NEUROLOGIC - Cranial nerves II through XII grossly intact. PSYCH - A&O, and cooperates fully with examiner. Pt is very pleasant and interacts well with examiner. Course Administered Medications Discontinued Medications Clindamycin HCl (Clindamycin Hcl 150 Mg Cap) 300 mg PO NOW ONE Stop: 11/06/22 19:44 Last Admin: 11/06/22 19:49 Dose: 300 mg Documented By: SCOTT Diphenhydramine HCl (Diphenhydramine 50 Mg/Ml Vial) 25 mg IV NOW STA Stop: 11/06/22 20:22 Last Admin: 11/06/22 20:27 Dose: 25 mg Documented By: SCOTT Hydromorphone HCl (Hydromorphone Inj 0.5 Mg/0.5 Ml Syr) 0.5 mg IV NOW STA Stop: 11/06/22 18:31 Last Admin: 11/06/22 18:41 Dose: 0.5 mg Documented By: ARMANDO Ioversol (Optiray 350 100ml) 83 ml IV ONCE ONE Stop: 11/06/22 18:21 Last Admin: 11/06/22 18:21 Dose: 83 ml Documented By: ODIN Ketorolac Tromethamine (Ketorolac Tromethamine 15 Mg/Ml Vial) 10 mg IV NOW ONE Stop: 11/06/22 18:07 Last Admin: 11/06/22 18:11 Dose: 10 mg Documented By: ARMANDO Morphine Sulfate (Morphine Sulfate 2 Mg/Ml Carp) 2 mg IV NOW STA Stop: 11/06/22 16:38 Last Admin: 11/06/22 16:50 Dose: 2 mg Documented By: NANDO Morphine Sulfate (Morphine Sulfate 4 Mg/Ml 1 Ml Carp\\Vial) 4 mg IV NOW STA Stop: 11/06/22 17:10 Last Admin: 11/06/22 17:15 Dose: 4 mg Documented By: NANDO Medical Decision Making Laboratory Data 11/06/22 14:50 11/06/22 14:50 Lab Results 11/06/22 11/06/22 11/06/22 Range/Units 14:50 14:50 15:01 WBC 6.62 (4.8-10.8) K/ul RBC 3.99 L (4.20-5.40) M/uL Hgb 12.7 (12.0-16.0) g/dl Hct 37.4 (37.0-47.0) % MCV 93.7 (80.0-100.0) fL MCH 31.8 (25.0-34.0) pg MCHC 34.0 (32.0-36.0) g/dL RDW Std Deviation 38.9 (36.4-46.3) fL RDW Coeff of Tari 11.4 L (11.5-14.5) % Plt Count 305 (130-400) K/uL MPV 9.9 (9.4-12.4) fL Immature Gran % (Auto) 0.5 % Neut % (Auto) 79.5 % Lymph % (Auto) 11.8 % Dillon % (Auto) 5.7 % Eos % (Auto) 2.0 % Baso % (Auto) 0.5 % Neut # (Auto) 5.27 (1.40-6.50) K/uL Lymph # (Auto) 0.78 L (1.2-3.4) K/uL Dillon # (Auto) 0.38 (0.11-0.59) K/uL Eos # (Auto) 0.13 (0-0.50) K/uL Baso # (Auto) 0.03 (0-0.2) K/uL Immature Gran # (Auto) 0.03 (0.01-0.20) K/uL PT (9.0-12.0) Seconds INR (0.9-1.1) APTT (21.0-31.0) Seconds PTT Ratio Sodium 137 (136-145) mmol/L Potassium 4.1 (3.5-5.1) mmol/L Chloride 104 (98-107) mmol/L Carbon Dioxide 27 (21-32) mmol/L Anion Gap 6 (3-11) BUN 12 (6-23) mg/dl Creatinine 0.68 (0.6-1.2) mg/dl Est Cr Clr Drug Dosing 120.6 ml/min Est GFR ( Amer) 130.4 ml/min Est GFR (Non-Af Amer) 112.5 ml/min BUN/Creatinine Ratio 17.6 (10-20) Glucose 95 (70-99(Fasting)) mg/dl Calcium 9.8 (8.6-10.3) mg/dl Total Bilirubin 0.5 (0.2-1.0) mg/dl AST 27 (13-39) U/L ALT 21 (7-52) U/L Alkaline Phosphatase 56 (34-104) U/L Total Protein 8.0 (6.0-8.3) gm/dl Albumin 4.9 (3.4-5.0) gm/dl Globulin 3.1 (2.5-4.0) gm/dl Albumin/Globulin Ratio 1.6 (0.9-2) POC Ur Test NEG (NEG) SARS-CoV-2, RNA, NAAT (NEGATIVE) 11/06/22 11/06/22 Range/Units 16:02 20:23 WBC (4.8-10.8) K/ul RBC (4.20-5.40) M/uL Hgb (12.0-16.0) g/dl Hct (37.0-47.0) % MCV (80.0-100.0) fL MCH (25.0-34.0) pg MCHC (32.0-36.0) g/dL RDW Std Deviation (36.4-46.3) fL RDW Coeff of Tari (11.5-14.5) % Plt Count (130-400) K/uL MPV (9.4-12.4) fL Immature Gran % (Auto) % Neut % (Auto) % Lymph % (Auto) % Dillon % (Auto) % Eos % (Auto) % Baso % (Auto) % Neut # (Auto) (1.40-6.50) K/uL Lymph # (Auto) (1.2-3.4) K/uL Dillon # (Auto) (0.11-0.59) K/uL Eos # (Auto) (0-0.50) K/uL Baso # (Auto) (0-0.2) K/uL Immature Gran # (Auto) (0.01-0.20) K/uL PT 10.6 (9.0-12.0) Seconds INR 1.0 (0.9-1.1) APTT 25.5 (21.0-31.0) Seconds PTT Ratio 0.9 Sodium (136-145) mmol/L Potassium (3.5-5.1) mmol/L Chloride (98-107) mmol/L Carbon Dioxide (21-32) mmol/L Anion Gap (3-11) BUN (6-23) mg/dl Creatinine (0.6-1.2) mg/dl Est Cr Clr Drug Dosing ml/min Est GFR ( Amer) ml/min Est GFR (Non-Af Amer) ml/min BUN/Creatinine Ratio (10-20) Glucose (70-99(Fasting)) mg/dl Calcium (8.6-10.3) mg/dl Total Bilirubin (0.2-1.0) mg/dl AST (13-39) U/L ALT (7-52) U/L Alkaline Phosphatase (34-104) U/L Total Protein (6.0-8.3) gm/dl Albumin (3.4-5.0) gm/dl Globulin (2.5-4.0) gm/dl Albumin/Globulin Ratio (0.9-2) POC Ur Test (NEG) SARS-CoV-2, RNA, NAAT NEGATIVE (NEGATIVE) Imaging Data Radiologist's Impression: Face CT 11/06/22 17:58 CT facial bones w con HISTORY: 37 years-old Female L sided facial pain and edema following surgery acute left-sided facial pain with soft tissue swelling status post T3 extraction COMPARISON: None TECHNIQUE: Multiple axial CT images of the maxillofacial bones were obtained following the intravenous administration of 83 mL Optiray 350. A dose lowering technique was used consistent with the principals of ALARA. FINDINGS: The imaged intracranial structures are unremarkable. The soft tissues and orbits are unremarkable. Soft tissues of the neck are within normal limits. No significant inflammatory changes or drainable fluid collections. Patent airway. Streak artifact from dental amalgam hardware. Mastoid air cells and middle ear cavities are clear. Minimal mucosal thickening of the paranasal sinuses. Chronic nasal bone fractures. There is evidence of bilateral maxillary and mandibular tooth extractions. Residual subcentimeter punctate foci noted within the left mandible adjacent to the first mandibular molar remote cavities. IMPRESSION: 1. No acute fracture, significant inflammatory changes or fluid collection identified status post tooth extraction. 2. Mild paranasal sinus disease. 3. Chronic nasal bone fractures. ACT 112: Negative or not required by law. The above report was generated using voice recognition software. It may contain grammatical, syntax or spelling errors. Electronically signed by: Antonio Farr M.D. 11/06/2022 6:45 PM [facility] Narrative Patient was seen and evaluated as above in room D01. Review was performed of triage nursing notes and vital signs. After obtaining a thorough history and physical examination the above work up was performed. Patient presents to us today for evaluation of rash and left-sided facial pain. She clinically is well-appearing and nontoxic. Options of care were discussed with the patient. IV access was established. Labs were drawn. She was medicated with IV morphine initially at 2 mg which did not provide any relief. A 4 mg dose was then provided with some relief. IV Toradol then added with minimal relief. Ultimately IV Dilaudid was added with some relief. Care was taken so as to monitor vital signs throughout this and at no point did she develop any concerning respiratory issues. Labs reveal no leukocytosis or concerning anemia. No emergent metabolic disturbance. test negative. COVID test negative. CT facial bones with IV contrast was obtained. No acute fracture, significant inflammatory change or fluid collection seen post tooth extraction. I discussed presentation with Dr. Locke of [facility]. I also was able to send him some pictures via [employer]! service of her surgical sites after obtaining consent from the patient. At this time there is concern for dry socket. Recommendation is for her to reach out to her surgeon for management of the dry sockets. Patient amenable to this plan but does desire inpatient management overnight secondary to pain. She notes severe pain over the past 2 nights to the point where she could not sleep. I do believe this is reasonable. Case discussed with the hospitalist service. Please refer to further documentation regarding her stay. I did order the patient oral clindamycin to help prevent infection in her current postoperative state in the setting of facial pain. She also had a small amount itchiness that she notes has been ongoing each night for the past few evenings and was given IV Benadryl. No signs of allergic reaction to medicines provided here. GCS: 15 In the evaluation and treatment of this patient, the following differential diagnoses were considered: Periapical Abscess, Osteonecrosis of the Jaw, Dental Fracture, Dental Caries, Rajiv's Angina, Vincent's Angina, Facial Cellulitis, among others. Impression & Plan Post-operative pain, Left-sided face pain Discharge Plan Visit Data Chief Complaint: Dental/Oral Stated Complaint: COME OVER TO SEE DR LOCKE, REACTIONS ON BODY ED Provider: Piero Ortez ED Midlevel Provider: Dick Mares Discharge Problem: Post-operative pain, Left-sided face pain Patient Disposition: Admitted As Inpatient Condition: Good Discharge Instructions Interventions: ED Discharge Assessment Last Done: 11/06/22 21:55
[2022-11-06 16:20] LABS: Albumin Level 4.9 gm/dl (3.4-5.0); Bilirubin,Total 0.5 mg/dl (0.2-1.0); Calcium 9.8 mg/dl (8.6-10.3); Potassium 4.1 mmol/L (3.5-5.1)
[2022-11-06 16:26] LABS: Albumin Globulin Ratio 1.6 (0.9-2); BUN Creatinine Ratio 17.6 (10-20); Creatinine Clr Calc Pharmacy 120.6 ml/min; Est GFR (African American) 130.4 ml/min; Est GFR (Non-African American) 112.5 ml/min; Globulin 3.1 gm/dl (2.5-4.0)
[2022-11-06] MEDS ORDERED: MoRPHine SULFATE 2 MG/ML CARP IV STA (16:37)
[2022-11-06] MEDS ORDERED: MoRPHine SULFATE 4 MG/ML 1 ML CARP\\VIAL IV STA (17:09)
[2022-11-06] MEDS ORDERED: KETOROLAC TROMETHAMINE 15 MG/ML VIAL IV ONE (18:06)
[2022-11-06] MEDS ORDERED: OPTIRAY 350 100ml IV ONE (18:20)
[2022-11-06] MEDS ORDERED: HYDROmorphone INJ 0.5 MG/0.5 ML SYR IV STA (18:30)
--- NOTE | 2022-11-06 18:46 | CT Scan Report ---
CT facial bones w con HISTORY: 37 years-old Female L sided facial pain and edema following surgery acute left-sided facial pain with soft tissue swelling status post T3 extraction COMPARISON: None TECHNIQUE: Multiple axial CT images of the maxillofacial bones were obtained following the intravenou s administration of 83 mL Optiray 350. A dose lowering technique was used consistent with the princip als of ROBERT. FINDINGS: The imaged intracranial structures are unremarkable. The soft tissues and orbits are unremarkable. So ft tissues of the neck are within normal limits. No significant inflammatory changes or drainable flu id collections. Patent airway. Streak artifact from dental amalgam hardware. Mastoid air cells and middle ear cavities are clear. Minimal mucosal thickening of the paranasal sinu ses. Chronic nasal bone fractures. There is evidence of bilateral maxillary and mandibular tooth extr actions. Residual subcentimeter punctate foci noted within the left mandible adjacent to the first ma ndibular molar remote cavities. IMPRESSION: 1. No acute fracture, significant inflammatory changes or fluid collection identified status post too th extraction. 2. Mild paranasal sinus disease. 3. Chronic nasal bone fractures. ACT 112: Negative or not required by law. The above report was generated using voice recognition software. It may contain grammatical, syntax o r spelling errors. Electronically signed by: Antonio Farr M.D. 11/06/2022 6:45 PM
[2022-11-06 19:24] LABS: Partial Thromboplastin Ratio 0.9; Partial Thromboplastin Time 25.5 Seconds (21.0-31.0); Prothrombin Time 10.6 Seconds (9.0-12.0)
[2022-11-06] MEDS ORDERED: CLINDAMYCIN HCL 150 MG CAP PO ONE (19:43)
[2022-11-06] MEDS ORDERED: diphenhydrAMINE 50 MG/ML VIAL IV STA (20:21)
--- NOTE | 2022-11-06 20:46 | History & Physical Report ---
Date of Service November 06, 2022 Assessment & Plan (1) Pain of tooth socket: Plan: -Admit to med/surge -The patient is currently afebrile, hemodynamically stable, and stable on RA -CT of the face is negative for acute abnormalities -ED staff spoke with Dr. Moore who recommended pain management and close FU with her Surgeon -S/P one dose of 300 mg PO Clinda in the ED, will continue with 300 mg PO Q6H for now with pro-biotic -Pain control with q6h 650 mg PO tylenol, 10 mg IV toradol q4h prn pain (1,2,3), and 0.25 mg IV dilaudid q6h prn pain (4,5,6+) -BL SCD's for DVT PPX -AM CBC and BMP -Patient will call her Oral surgeon in the AM and will likely be able to be discharged if pain is controlled Plan The patient was discussed with Dr. Louis at the time of the admission History of Present Illness Chief Complaint: Increased pain after tooth extraction Primary Care Provider: Kacie Rodriguez MD Lenore is a 37 year old female with a PMH significant for right carotid aneurysm, currently on a trial of hydroxychloroquine for RA (Follows with [facility]) and recent tooth extraction who presented to the [facility] ED on 11/06/22 due to ongoing pain and possible reaction to Azithromycin. In the ED the patient was found to be afebrile, hemodynamically stable, and stable on RA. Labs were significant for a CBC and CMP WNL with coivd [address] of the facial bones was read as "1. No acute fracture, significant inflammatory changes or fluid collection identified status post tooth extraction.2. Mild paranasal sinus disease. 3. Chronic nasal bone fractures.". The ED staff spoke with ENT who thought her surgical sites were consistent with dry sockets and recommended pain control with close follow-up with her oral surgeon. We were asked to admit for pain control overnight. Prior to admission the patient was given 10 mg IV toradol, 6 mg total IV morphine, 0.5 mg IV dilaudid, 25 mg IV benadryl, and 300 mg PO Clindamycin. At the time of the exam the patient was lying in bed, sleeping, as she had recently received a dose of dilaudid and benadryl. History was obtained from she and her who was sitting bedside. They state that she had multiple teeth extracted in the upper and lower jaw on 11/02/22 outside of [place]. Since the procedure she has had uncontrolled pain despite using the Ibuprofen, extra strength tylenol, and Percocet she was prescribed. She called the oral surgeon concierge receptionist Sunday night as her pain was severe, they stated she would have to come down to [place] but they would only pack the surgical sites then discharge her home. She has been eating a soft diet and has not been using straws. No recent fevers or chills, increased swelling, difficulty swallowing or breathing, SOB, chest pain, abd pain, nausea, and vomiting. They confirmed that she was on Aspirin prior to her procedure for her right carotid aneurysm and will restart it this week. She is also on a trial of Hydroxychloroquine prescribed by Rheum. Please refer to Dr. Louis's attestation for any changes to the treatment plan Allergies Allergy/AdvReac Type Severity Reaction Status Date / Time cephalexin Allergy Unknown HIVES Verified 10/11/22 15:07 doxycycline Allergy Unknown rash & Verified 10/11/22 15:07 vomiting latex Allergy Unknown RASH Verified 10/11/22 15:07 ondansetron Allergy Unknown HIVES Verified 10/11/22 15:07 peanut Allergy Unknown ANAPHYLAXIS Verified 10/11/22 15:07 Penicillins Allergy Unknown Childhood Verified 10/11/22 15:07 allergy/unknown rxn Home Medications Medication Instructions Recorded Confirmed Type promethazine 12.5 mg tablet 12.5 mg PO TID PRN nausea #20 tabs 06/14/21 10/11/22 Rx aspirin 81 mg tablet,delayed 81 - 162 mg PO QAM 02/16/22 10/11/22 History release albuterol sulfate 90 mcg/actuation 2 puffs inhalation UD PRN 08/14/22 10/11/22 History aerosol inhaler shortness of breath or wheezing hydroxychloroquine 400 mg tablet 200 mg PO BID 08/14/22 10/11/22 History sumatriptan succinate 100 mg tablet 100 mg PO UD 08/14/22 10/11/22 History albuterol [Ventolin] inhalation 08/18/22 10/11/22 History fluticasone propionate 50 1 spray intranasal DAILY 30 days 08/18/22 10/11/22 Rx mcg/actuation nasal #16 grams spray,suspension (Flonase Allergy Relief) clindamycin HCl 300 mg capsule 300 mg PO TID #19 caps 11/07/22 Rx ibuprofen 600 mg tablet 600 mg PO TID PRN pain #20 tabs 11/07/22 Rx oxycodone 5 mg tablet 5 mg PO Q8H PRN pain, severe #14 11/07/22 Rx tabs Past Med/Surg History Medical History Aneurysm RIGHT CERVICAL ICA - FOLLOW [facility] - NEXT JENAE SEP 2022 - NEUROSURGERY & REPEAT MRA'S SCHEDULED FOR DECEMBER 2022 REASON FOR CURRENT BABY ASPIRIN Arthralgia Asthma well controlled rare res inh use Bruises easily Cold intolerance Connective tissue disorder getting testing > plans to see Nicola Avila in near future - not eval by [facility] / eval with [facility] ...dx with RA Constipation Dysphagia Dysphonia Hiatal hernia History of anesthesia reaction heart rate normally runs in 40's, during a procedure once, dropped into 20's History of stomach ulcers Irritable bowel syndrome with diarrhea Migraines Rheumatoid arthritis Sacroiliitis Seizure age 7 > work up completed and negative > no issues since Slow to wake up after anesthesia TMJ (temporomandibular joint disorder) HX LOCKING Trouble swallowing WITH CHOCKING SENSATION/HAS ENT SCOPE SCHEDULED FOR AUG 18 2022 PRE PROCEDURE COVID TEST FOR ENT SCOPE ON AUG 16 2022 - PCP / DR RODRIGUEZ OFFICE Vitamin D deficiency hx Surgical History History of cardiac cath Jul 2020> due to failed stress test > was having chest pain> no further issues History of colonoscopy History of D&C History of esophagogastroduodenoscopy (EGD) History of nasal septoplasty x2 History of oral surgery History of rhinoplasty History of surgery on right wrist History of tooth extraction Hx of cholecystectomy Family History Grandmother Myocardial infarction Breast cancer Stroke Diabetes Grandfather Myocardial infarction Diabetes Mother Diabetes Father Diabetes Social History Smoking Status: Never smoker Second Hand Exposure: No; Hx Alcohol Use: No Hx Substance Use: No Preferred Language: Latvian Communication Ability: Effective Public Records Researcher Required: No Beliefs That Will Affect Care: None marital status: Current Living Situation: Spouse current occupational status: employed Feels Safe at Home: Yes Dental Care, Regularly: Yes Physical Activity Frequency: 5-6 Times per Week Assistive Devices: None Review of Systems Review of Systems: Denies current fever, chills, headache, changes in vision, hearing, taste, and smell, chest pain, SOB, cough, abdominal pain, nausea, vomiting, diarrhea, hematemesis, melena, dysuria, hematuria, and recent falls. All systems have been reviewed and are otherwise negative. Physical Exam Physical Exam: Physical Exam: General: In no acute distress, stated age, well-nourished, good hygiene HEENT: Normocephalic, atraumatic, no scleral icterus, pupils around round, symmetrical, and reactive to light, moist mucus membranes, patient with tooth extraction sites in the upper and lower jaw which are without sings of acute infection or drainage, trachea midline, no thyromegaly Chest/Pulm: No respiratory distress, symmetrical chest expansion, clear breath sounds throughout Cardiac: RRR, no murmurs noted Abdomen: Negative for ascites and bruising, normoactive bowel sounds, soft, non-tender to palpation throughout Psych: Fatigued, no acute distress, cooperative during the exam Results & Data Results & Data Vital Signs (Past 12 Hours) Vital Signs Temp Pulse Pulse Resp BP BP Pulse Ox 11/06/22 20:21 63 18 114/68 95 11/06/22 18:46 95 H 16 99/50 L 95 11/06/22 17:16 69 16 110/75 96 11/06/22 16:30 69 16 122/70 99 11/06/22 13:42 36.8 C 78 18 128/86 98 O2 Del Method 11/06/22 20:21 11/06/22 18:46 Room Air 11/06/22 17:16 Room Air 11/06/22 16:30 Room Air 11/06/22 13:42 Room Air Laboratory Results Abnormal lab results 11/06/22 Range/Units 14:50 RBC 3.99 L (4.20-5.40) M/uL RDW Coeff of Tari 11.4 L (11.5-14.5) % Lymph # (Auto) 0.78 L (1.2-3.4) K/uL Diagnostic Findings Face CT 11/06/22 17:58 CT facial bones w con HISTORY: 37 years-old Female L sided facial pain and edema following surgery acute left-sided facial pain with soft tissue swelling status post T3 extraction COMPARISON: None TECHNIQUE: Multiple axial CT images of the maxillofacial bones were obtained following the intravenous administration of 83 mL Optiray 350. A dose lowering technique was used consistent with the principals of ROBERT. FINDINGS: The imaged intracranial structures are unremarkable. The soft tissues and orbits are unremarkable. Soft tissues of the neck are within normal limits. No significant inflammatory changes or drainable fluid collections. Patent airway. Streak artifact from dental amalgam hardware. Mastoid air cells and middle ear cavities are clear. Minimal mucosal thickening of the paranasal sinuses. Chronic nasal bone fractures. There is evidence of bilateral maxillary and mandibular tooth extractions. Residual subcentimeter punctate foci noted within the left mandible adjacent to the first mandibular molar remote cavities. IMPRESSION: 1. No acute fracture, significant inflammatory changes or fluid collection identified status post tooth extraction. 2. Mild paranasal sinus disease. 3. Chronic nasal bone fractures. ACT 112: Negative or not required by law. The above report was generated using voice recognition software. It may contain grammatical, syntax or spelling errors. Electronically signed by: Antonio Farr M.D. 11/06/2022 6:45 PM Code Status & VTE Plan Code Status Full code VTE Prophylaxis Plan VTE Prophylaxis will be ordered: Yes Supervising Physician Co-Signing Physician Notes Patient discussed [facility]-Gladis Peno and time of admission and I agree with the assessment and plan as above. In brief, patient is a 37yo female presenting with oral pain following multiple tooth extractions. She is afebrile, HD stable. Requiring IV pain medication for comfort Findings most consistent with dry socket given recent extraction Will continue with pain medication Clindamycin for now Oral packing per surgical team PG Care Time/CCT Total # of Minutes Spent Total Time Spent with Patient: Total time spent is greater than 50% in coordination of care (as documented) at patient's floor/unit and/or counseling patient: Coding [place] [address] INT INP/OBS CARE 2/55MIN Patient Type Established Medical Decision Making Moderate Complexity Diagnoses Pain of tooth socket K08.89
[2022-11-06] MEDS ORDERED: KETOROLAC TROMETHAMINE 15 MG/ML VIAL IV PRN (20:59)
[2022-11-06] MEDS: diphenhydrAMINE Capsule 25 MG CAP PO PRN (23:47)
[2022-11-06] MEDS: CLINDAMYCIN HCL 150 MG CAP PO SCH (23:48)
[2022-11-06] MEDS: ACETAMINOPHEN 325 MG TAB PO SCH (23:50)
[2022-11-06] MEDS: HYDROXYCHLOROQUINE SULFATE 200 MG TAB PO SCH (23:50)
[2022-11-07] MEDS: HYDROmorphone INJ 0.5 MG/0.5 ML SYR IV PRN ×3 (00:22→14:15)
[2022-11-07] MEDS ORDERED: KETOROLAC TROMETHAMINE 15 MG/ML VIAL IV PRN ×2 (03:34→06:00)
[2022-11-07] MEDS ORDERED: KETOROLAC TROMETHAMINE 15 MG/ML VIAL IV ONE (03:44)
[2022-11-07] MEDS: ACETAMINOPHEN 325 MG TAB PO SCH ×2 (05:18→11:42)
[2022-11-07] MEDS: CLINDAMYCIN HCL 150 MG CAP PO SCH ×2 (06:26→11:44)
[2022-11-07] MEDS: diphenhydrAMINE Capsule 25 MG CAP PO PRN (06:27)
[2022-11-07 07:48] LABS: Basophils # (auto) 0.01 K/uL (0-0.2); Basophils % (auto) 0.2 %; Eosinophils # (auto) 0.04 K/uL (0-0.50); Eosinophils % (auto) 0.6 %; Hematocrit (blood only) 33.4 % (37.0-47.0); Hemoglobin 11.2 g/dl (12.0-16.0); Immature Granulocytes # (auto) 0.01 K/uL (0.01-0.20); Immature Granulocytes % (auto) 0.2 %; Lymphocytes # (auto) 1.13 K/uL (1.2-3.4); Lymphocytes % (auto) 17.1 %; Mean Corpuscular Hemoglobin 31.6 pg (25.0-34.0); Mean Corpuscular Hgb Conc 33.5 g/dL (32.0-36.0); Mean Corpuscular Volume 94.4 fL (80.0-100.0); Mean Platelet Volume 9.9 fL (9.4-12.4); Monocytes % (auto) 9.1 %; Neutrophils % (auto) 72.8 %; Platelet Count 261 K/uL (130-400); RDW Coefficient of Variation 11.2 % (11.5-14.5); RDW Standard Deviation 38.9 fL (36.4-46.3); Red Blood Count 3.54 M/uL (4.20-5.40); White Blood Count 6.59 K/ul (4.8-10.8)
[2022-11-07 08:07] LABS: BUN Creatinine Ratio 22.7 (10-20); Calcium 9.2 mg/dl (8.6-10.3); Creatinine Clr Calc Pharmacy 124.3 ml/min; Est GFR (African American) 131.7 ml/min; Est GFR (Non-African American) 113.6 ml/min
[2022-11-07] MEDS ORDERED: ADVANCED PROBIOTIC 1250 MG CAPSULE PO SCH (09:00)
[2022-11-07] MEDS ORDERED: CYANOCOBALAMIN (B-12) 500 MCG TABLET PO SCH (09:00)
[2022-11-07] MEDS ORDERED: MAGNESIUM OXIDE 400 MG TAB PO SCH (09:00)
[2022-11-07] MEDS ORDERED: ASPIRIN 81 MG ECTAB PO SCH (09:00)
[2022-11-07] MEDS: HYDROXYCHLOROQUINE SULFATE 200 MG TAB PO SCH (09:19)
--- NOTE | 2022-11-07 14:05 | Discharge Summary ---
Date of Service November 07, 2022 Admission HPI Per Admitting Provider Lenore is a 37 year old female with a PMH significant for right carotid aneurysm, currently on a trial of hydroxychloroquine for RA (Follows with [facility]) and recent tooth extraction who presented to the [facility] ED on 11/06/22 due to ongoing pain and possible reaction to Azithromycin. In the ED the patient was found to be afebrile, hemodynamically stable, and stable on RA. Labs were significant for a CBC and CMP WNL with coivd [address] of the facial bones was read as "1. No acute fracture, significant inflammatory changes or fluid collection identified status post tooth extraction.2. Mild paranasal s inus disease. 3. Chronic nasal bone fractures.". The ED staff spoke with ENT who thought her surgical sites were consistent with dry sockets and recommended pain control with close follow-up with her oral surgeon. We were asked to admit for pain control overnight. Prior to admission the patient was given 10 mg IV toradol, 6 mg total IV morphine, 0.5 mg IV dilaudid, 25 mg IV benadryl, and 300 mg PO Clindamycin. At the time of the exam the patient was lying in bed, sleeping, as she had recently received a dose of dilaudid and benadryl. History was obtained from she and her who was sitting bedside. They state that she had multiple teeth extracted in the upper and lower jaw on 11/02/22 outside of [place]. Since the procedure she has had uncontrolled pain despite using the Ibuprofen, extra strength tylenol, and Percocet she was prescribed. She called the oral surgeon manager corporate communications Sunday night as her pain was severe, they stated she would have to come down to [place] but they would only pack the surgical sites then discharge her home. She has been eating a soft diet and has not been using straws. No recent fevers or chills, increased swelling, difficulty swallowing or breathing, SOB, chest pain, abd pain, nausea, and vomiting. They confirmed that she was on Aspirin prior to her procedure for her right carotid aneurysm and will restart it this week. She is also on a trial of Hydroxychloroquine prescribed by Rheum. Principal Diagnosis Mouth/socket pain following tooth extraction x5 Discharge Exam GENERAL: 37 yo well-developed, well-nourished WF. A&Ox3. NAD. HENT: Moist mucous membranes. Tooth extraction sites on upper and lower jaws w/o drainage, bleeding, or erythema. No scleral icterus. No cervical lymphadenopathy. LUNGS: Clear to auscultation bilaterally. No accessory muscle use. No W/R/R. CARDIOVASCULAR: Regular rate and rhythm. No M/G/R. No JVD. Discharge Data Allergies Allergy/AdvReac Type Severity Reaction Status Date / Time cephalexin Allergy Unknown HIVES Verified 10/11/22 15:07 doxycycline Allergy Unknown rash & Verified 10/11/22 15:07 vomiting latex Allergy Unknown RASH Verified 10/11/22 15:07 ondansetron Allergy Unknown HIVES Verified 10/11/22 15:07 peanut Allergy Unknown ANAPHYLAXIS Verified 10/11/22 15:07 Penicillins Allergy Unknown Childhood Verified 10/11/22 15:07 allergy/unknown rxn Consultations 11/06/22 20:46 ED Decision to Admit Stat Ordered Studies Face CT 11/06/22 17:58 CT facial bones w con HISTORY: 37 years-old Female L sided facial pain and edema following surgery acute left-sided facial pain with soft tissue swelling status post T3 extraction COMPARISON: None TECHNIQUE: Multiple axial CT images of the maxillofacial bones were obtained following the intravenous administration of 83 mL Optiray 350. A dose lowering technique was used consistent with the principals of SAURABHRA. FINDINGS: The imaged intracranial structures are unremarkable. The soft tissues and orbits are unremarkable. Soft tissues of the neck are within normal limits. No significant inflammatory changes or drainable fluid collections. Patent airway. Streak artifact from dental amalgam hardware. Mastoid air cells and middle ear cavities are clear. Minimal mucosal thickening of the paranasal sinuses. Chronic nasal bone fractures. There is evidence of bilateral maxillary and mandibular tooth extractions. Residual subcentimeter punctate foci noted within the left mandible adjacent to the first mandibular molar remote cavities. IMPRESSION: 1. No acute fracture, significant inflammatory changes or fluid collection identified status post tooth extraction. 2. Mild paranasal sinus disease. 3. Chronic nasal bone fractures. ACT 112: Negative or not required by law. The above report was generated using voice recognition software. It may contain grammatical, syntax or spelling errors. Electronically signed by: Antonio Farr M.D. 11/06/2022 6:45 PM Hospital Course (1) Pain of tooth socket: Acute/unstable - low to mod risk - Admitted to med/surge - Patient is currently afebrile, hemodynamically stable, and stable on RA - CT of the face is negative for acute abnormalities/fluid collection/signs of infection - ED staff spoke with Dr. Moore who recommended pain management and close FU with her Surgeon - S/P one dose of 300 mg PO Clinda in the ED, will continue with 300 mg PO Q6H for now with pro-biotic - Pain control ordered with q6h 650 mg PO tylenol, 10 mg IV toradol q4h prn pain (1,2,3), and 0.25 mg IV dilaudid q6h prn pain (4,5,6+) - AM CBC and BMP reviewed - no acute abnormalities, no leukocytosis or shift - Patient will be discharged home on Clindamycin 300mg TID x 6 days (for total of 7 days) - Pain control will be implemented with short course of OxyIR 5-10mg q8h prn thierry akthrough pain, should take scheduled APAP 1g TID and also rx sent for Ibuprofen 600mg q8 that she can take in between APAP doses - Cool compress to affected area - She will need to call and schedule f/u with her OMFS/dentist Plan She is medically and hemodynamically stable for discharge home today. Close f/u as outlined above. F/u with pcp recommended within 1 week. Plan of care has been d/w Dr. Galindo who is in agreement. Total Time Total Time Spent Total Time Spent (In Minutes): <30 minutes Discharge Plan Discharge Items Patient Disposition: Home - Self-Care Reason For Visit: SURGICAL SITE PAIN Discharge Diagnosis: mouth pain after tooth extraction Condition on Discharge: Good Activity: Resume your previous activity Non-emergency contact: Primary Care Provider Call non-emergency contact if: you have any medication questions Follow-up/Referrals: Kacie Metz MD [Primary Care Provider] - Diet: Regular Diet Texture: Easy to Chew Addtl Attending Provider Instructions: You were hospitalized with dental pain after having multiple teeth extracted. Your antibiotics have been changed to Clindamycin 300mg to be taken three times a day. Please note that some mild nausea and diarrhea can be a side effect of this medication. You can take it with probiotics to minimize the diarrhea. Also take it with a small snack/food. You will be prescribed Oxycodone 5-10mg to take as directed for breakthrough pain. Unfortunately, due to a computer error I was not able to send this prescription electronically. You will have to take physically to the pharmacy to be filled. You can also take scheduled Tylenol (extra strength) 1000mg three times a day scheduled. In between the Tylenol, you can also take Ibuprofen 600mg as directed. STOP TAKING the Percocet. Also, DO NOT drive or operative any machinery while taking Oxycodone as it can affect your response time and judgement. Use a cool compress to affected area as needed. You should follow up with your maxillofacial surgeon or dentist if pain does not improve over the next 48-72 hours. Recommend follow up with your primary care provider within 1 week of discharge. If you have any questions or concerns following your discharge, please call the nonemergency number listed on your discharge paperwork. In the event of a medical emergency, call 911 or go to your nearest ER. Pending Studies at Discharge: No Stand-Alone Forms: My [facility], Smoking Cessation Medications and DC Order Prescriptions: New ibuprofen 600 mg tablet 600 mg PO TID PRN (Reason: pain) Qty: 20 0RF oxycodone 5 mg tablet 5 mg PO Q8H PRN (Reason: pain, severe) Qty: 14 0RF Rx Instructions: Take 1 tab (5mg) for pain on a scale of 4-6 Take 2 tabs (10mg) for pain on a scale of 7-10 clindamycin HCl 300 mg capsule 300 mg PO TID Qty: 19 0RF Continued albuterol [Ventolin] inhalation fluticasone propionate [Flonase Allergy Relief] 50 mcg/actuation spray,suspension 1 spray intranasal DAILY 30 Days Qty: 16 6RF Rx Instructions: administer into each nostril aspirin 81 mg tablet,delayed release (DR/EC) 81 - 162 mg PO QAM promethazine 12.5 mg tablet 12.5 mg PO TID PRN (Reason: nausea) Qty: 20 0RF Rx Instructions: 3 doses during day; last dose no later than 4 hr before bedtime sumatriptan succinate 100 mg tablet 100 mg PO UD Rx Instructions: 100 mg PO TAKE 1 TABLET FOR MIGRAINE RELIEF. MAY REPEAT 2 HOURS LATER. MAX 200 MG/DAY; (verified pat call 08/14/22). albuterol sulfate 90 mcg/actuation HFA aerosol inhaler 2 puffs INH UD PRN (Reason: shortness of breath or wheezing) hydroxychloroquine 400 mg Tablet 200 mg PO BID Patient Comments: 200 mg tablets one in morning and one at night Discharge Orders: Discharge Order (Routine); Ordered 11/07/22 Ordered By: Merna Hanna Admission Data Admit Date/Time: 11/06/22 20:44 Attending Provider: Collin Galindo Admit Provider: Daija Louis Primary Care Provider: Kacie Metz Other Providers: Daija Louis Coding Level of Care Code 95961 IN/OBS DISCH 30 MIN/LESS Diagnoses Pain of tooth socket K08.89
== END 2022-11-07 16:09 | disposition home or self-care (01) ==
LOC: 3N 13:16 → ED 13:16 → SUATTDRO 20:44 → 3N 21:55